=== PATIENT | male | born 1955 | race Hispanic/Latino ===

== ENCOUNTER 2017-12-06 01:58 | Inpatient (IN) | payer OTHER, SELFPAY ==
[~2017-12-06] VITALS: Ht 170.2 cm; Wt 60.8 kg
[2017-12-06] MEDS ORDERED: BENZONATATE 100 MG CAPSULE PO ONE ×3 (02:22→14:27)
[2017-12-06] MEDS ORDERED: IPRATROPIUM/ALBUTEROL SULFATE 3 ML SOLUTION IH ONE ×3 (02:24→10:39)
[2017-12-06 02:30] LABS: BASOPHILS % (AUTO) 0.5 % (0.0-5.0); EOSINOPHILS % (AUTO) 0.7 % (0.0-8.0); HEMATOCRIT 48.6 % (42-54); LYMPHOCYTES % (AUTO) 11.3 % (21.0-51.0); MEAN CORPUSCULAR HEMOGLOBIN 27.1 pg (27.0-33.0); MEAN CORPUSCULAR HGB CONC 33.5 g/dL (32.0-36.0); MEAN CORPUSCULAR VOLUME 80.9 fL (79-99); NEUTROPHILS % (AUTO) 75.5 % (40.0-77.0); PLATELET COUNT (AUTO) 236 K/uL (130-400); RED BLOOD CELL COUNT(AUTO) 6.01 MIL/uL (4.50-6.20); RED CELL DISTRIBUTION WIDTH 14.3 % (11.0-15.5); WHITE BLOOD COUNT (AUTO) 8.3 K/uL (4.8-10.8)
[2017-12-06 02:35] LABS: CREATININE 0.9 mg/dL (0.5-1.5); POTASSIUM 3.8 mmol/L (3.5-5.1)
[2017-12-06 02:49] LABS: ALBUMIN 3.9 g/dL (3.5-5.0); BILIRUBIN,TOTAL 0.6 mg/dL (0.2-1.0); TOTAL PROTEIN, SERUM 8.3 g/dL (6.0-8.3)
[2017-12-06 03:01] LABS: B-TYPE NATRIURETIC PEPTIDE 28 pg/mL (0-100)
[2017-12-06 03:12] LABS: APPEARANCE,URINE Clear (CLEAR); BILIRUBIN,URINE Negative (NEGATIVE); COLOR,URINE Yellow (YELLOW); GLUCOSE, URINE (UA) Negative (NEGATIVE); KETONES,URINE Negative (NEGATIVE); LEUKOCYTE ESTERASE ,URINE Negative (NEGATIVE); NITRATE,URINE Negative (NEGATIVE); OCCULT BLOOD,URINE Negative (NEGATIVE); PH,URINE 5.5 (5.0-8.0); PROTEIN,URINE Negative (NEGATIVE); UROBILINOGEN,URINE 0.2 mg/dL (0.2-1.0)
[2017-12-06 03:19] LABS: AMPHET/METH SCREEN,URINE NEGATIVE (NEGATIVE); BARBITURATE SCREEN, URINE NEGATIVE (NEGATIVE); BENZODIAZEPINES SCREEN,URINE NEGATIVE (NEGATIVE); CANNABINOID SCREEN,URINE NEGATIVE (NEGATIVE); COCAINE SCREEN,URINE POSITIVE (NEGATIVE); OPIATE SCREEN,URINE NEGATIVE (NEGATIVE); PHENCYCLIDINE SCREEN,URINE NEGATIVE (NEGATIVE)
[2017-12-06] MEDS ORDERED: METHYLPREDNISOLONE SOD SUCC 125MG/2ML VIAL ONE (04:27)
[2017-12-06] MEDS ORDERED: GUAIFENESIN-CODEINE 5 ML SYRUP ONE (04:38)
[2017-12-06] MEDS ORDERED: CEFTRIAXONE SODIUM 1 GM ONE (04:41)
[2017-12-06] MEDS: IPRATROPIUM/ALBUTEROL SULFATE 3 ML SOLUTION IH PRN ×4 (05:52→22:19)
[2017-12-06 08:12] VITALS: BP 116/74
[2017-12-06] MEDS: BENZONATATE 100 MG CAPSULE PO SCH ×3 (09:55→21:35)
[2017-12-06 12:20] VITALS: BP 119/72
[2017-12-06 16:00] VITALS: BP 137/83
[2017-12-06] MEDS: METHYLPREDNISOLONE SOD SUCC 40MG/ML 1ML IVP SCH (17:19)
[2017-12-06] MEDS ORDERED: FLU VACC QS2017-18 36MOS UP/PF 60 MCG/0.5 ML ML IM ONE (19:15)
[2017-12-06 19:35] VITALS: BP 136/82
[2017-12-06] MEDS ORDERED: PNEUMOCOCCAL VACCINE POLYVALENT 0.5 ML/VIAL [PPV] IM ONE (20:00)
[2017-12-07 00:20] VITALS: BP 128/75
[2017-12-07] MEDS: IPRATROPIUM/ALBUTEROL SULFATE 3 ML SOLUTION IH PRN ×4 (02:54→13:46)
[2017-12-07 05:09] VITALS: BP 131/79
[2017-12-07] MEDS: METHYLPREDNISOLONE SOD SUCC 40MG/ML 1ML IVP SCH ×2 (05:10→17:54)
[2017-12-07] MEDS: CEFTRIAXONE SODIUM 1 GM IVP SCH (09:08)
[2017-12-07] MEDS: BENZONATATE 100 MG CAPSULE PO SCH ×3 (09:09→20:11)
[2017-12-07 11:34] VITALS: BP 135/74
[2017-12-07] MEDS: GUAIFENESIN-DM 200/20 MG 10 ML PO PRN ×2 (13:34→21:36)
[2017-12-07 16:00] VITALS: BP 120/72
[2017-12-07 19:50] VITALS: BP 139/89
[2017-12-07 23:25] VITALS: BP 145/94
[2017-12-08 03:50] VITALS: BP 138/60
[2017-12-08] MEDS: METHYLPREDNISOLONE SOD SUCC 40MG/ML 1ML IVP SCH (04:45)
[2017-12-08 08:00] VITALS: BP 152/93
[2017-12-08] MEDS: BENZONATATE 100 MG CAPSULE PO SCH (09:25)
[2017-12-08] MEDS: CEFTRIAXONE SODIUM 1 GM IVP SCH (09:25)
[2017-12-08] MEDS ORDERED: BENZ-51 PO (10:09)
[2017-12-08] MEDS ORDERED: PRED20TA3 PO (10:09)
[2017-12-08] MEDS ORDERED: BUDE180H IH (10:09)
[2017-12-08] MEDS ORDERED: CEFD300C3 PO (10:10)
[2017-12-08 11:00] VITALS: BP 154/85
== END 2017-12-08 11:43 | disposition home or self-care (01) | DRG 189 ==
LOC: EDH 01:58 → EDHIP 01:59 → 3BH 15:47
PROVIDERS: ADMIT Family Medicine; ATTEND Family Medicine
PROC: 3E0234Z Introduction of Serum, Toxoid and Vaccine into Muscle, Percutaneous Approach (ICD-10-PCS; principal; 2017-12-06)
PROC: 3E0234Z Introduction of Serum, Toxoid and Vaccine into Muscle, Percutaneous Approach (ICD-10-PCS; 2017-12-06)
DX: J96.20 Acute and chronic respiratory failure, unspecified whether with hypoxia or hypercapnia (principal); J44.1 Chronic obstructive pulmonary disease with (acute) exacerbation; B19.20 Unspecified viral hepatitis C without hepatic coma; E03.9 Hypothyroidism, unspecified; E11.9 Type 2 diabetes mellitus without complications; F17.200 Nicotine dependence, unspecified, uncomplicated; I10 Essential (primary) hypertension; Z86.11 Personal history of tuberculosis; Z23 Encounter for immunization
CPT/HCPCS: 36415; 71046; 80053; 80305; 81003; 82550; 82553; 83880; 84484; 85025; 87804; 93005; 94640; 94664; A4218; J0696; J2920; J2930